=== PATIENT | female | born 1990 | race Caucasian/White ===

== ENCOUNTER 2017-05-15 10:55 | Inpatient (IN) ==
[2017-05-15] MEDS ORDERED: ONDANSETRON HCL/PF 2 MG/ML VIAL IV PRN ×2 (12:49→15:09)
[2017-05-15] MEDS ORDERED: RINGER'S SOLUTION,LACTATED 1,000 ML IV ONE (12:49)
[2017-05-15] MEDS ORDERED: RINGER'S SOLUTION,LACTATED 1,000 ML IV PRN (12:49)
[2017-05-15] MEDS ORDERED: OXYTOCIN/DEXTROSE 5%-WATER 30 UNITS/500 ML BAG IV ONE ×2 (12:49→20:24)
[2017-05-15] MEDS ORDERED: NALOXONE HCL 1 MG/1 ML SYRG IV PRN (15:09)
[2017-05-15] MEDS ORDERED: BUPIVACAINE HCL/0.9 % NACL/PF 250 ML EP PRN (15:09)
[2017-05-15] MEDS ORDERED: fentaNYL CITRATE/PF 50 MCG/ML AMPUL IT SCH (15:15)
--- NOTE | 2017-05-15 16:23 | OR ---
Anesthesia Procedure Note - Anesthesia Procedure Note Narrative: Vital Signs - Last Taken Temp 37.3 C 05/15/17 15:53 Pulse 71 05/15/17 15:53 Resp 20 05/15/17 15:53 BP 129/70 05/15/17 15:53 Pulse Ox 100 05/15/17 15:53 05/15/17 16:22 ANESTHESIA PROCEDURE NOTE Date of Procedure: 05/15/2017 Time of procedure: 1550. Performed by: Kevin Mace CRNA Director Of Vocational Training: None. Preprocedure diagnosis: Active labor. Post procedure diagnosis: Same. Procedure: Insertion of labor epidural. Indications: The patient is a 26 -year-old prima para female in active labor requesting labor epidural for pain management. Findings: See below. Details of the procedure: The patient was placed in a sitting position. Back was prepped with DuraPrep. Patient was then draped in a sterile fashion. Lidocaine 1% was infiltrated to the skin and subcutaneous tissues at the level of the L3 4 interspace. The epidural space was identified using a 18-gauge Tuohy needle with [id number] technique. 20 mcg fentanyl was given intrathecally using a 27 ga. spinal needle. Epidural catheter was inserted without difficulty. Negative test dose was elicited using 5 mL of 1.5% preservative-free lidocaine plus epinephrine 1 200,000. The epidural catheter was then taped and secured in place. EBL: Minimal. Fluids: N/A. Specimen: N/A. Post procedure condition: The patient tolerated the procedure well. No complications were noted. Thank you for this consultation. Dominguez CRNA
[2017-05-15] MEDS ORDERED: LIDOCAINE HCL 50 ML VIAL ONE (20:02)
[2017-05-15] MEDS ORDERED: oxyCODONE HCL/ACETAMINOPHEN 1 TAB TABLET PO PRN ×2 (20:24)
[2017-05-15] MEDS ORDERED: HYDROCORTISONE 30 APPL TUBE TP PRN (20:24)
[2017-05-15] MEDS ORDERED: GLYCERIN/WITCH HAZEL LEAF 40 APPL BOX TP PRN (20:24)
[2017-05-15] MEDS ORDERED: SENNOSIDES 8.6 MG TABLET PO PRN (20:24)
[2017-05-15] MEDS ORDERED: BISACODYL 10 MG SUPP.RECT RC PRN (20:24)
--- NOTE | 2017-05-15 20:27 | OR ---
Operative Report - Dictated Report Narrative: Spontaneous vaginal delivery of viable female at 1952 and 05/15/2017 with Apgars 9 and 9, weighing 3511 g in DARWIN position with tight nuchal cord 1. Cord clamping delayed approximately 1 minute Placenta delivered complete, intact, with three vessel cord Estimated blood loss: 100 mL Anesthesia: Epidural and local anesthetic Lacerations: Bilateral periurethral first-degree lacerations repaired with 4-0 Vicryl Rapide History for MU Definition: * The number of deliveries resulting in a live the patient experienced prior to current hospitalization * The previous delivery of live twins or any live multiple gestation is considered one live event. *If primagravida or nulliparous is documented select zero for the number of previous live births. Live Events: 0
[2017-05-15] MEDS: ACETAMINOPHEN 500 MG TABLET PO PRN (20:57)
[2017-05-15] MEDS: DOCUSATE SODIUM 100 MG CAPSULE PO SCH (21:08)
[2017-05-15] MEDS: BENZOCAINE/MENTHOL 81 SPRAY CAN TP PRN (21:08)
[2017-05-16] MEDS: IBUPROFEN 800 MG TABLET PO PRN ×3 (02:27→20:12)
[2017-05-16] MEDS: ACETAMINOPHEN 500 MG TABLET PO PRN ×2 (08:11→16:05)
[2017-05-16] MEDS: DOCUSATE SODIUM 100 MG CAPSULE PO SCH ×2 (08:11→20:13)
--- NOTE | 2017-05-16 12:01 | PN ---
Subjective - Date and Time Seen Date: 05/16/17 Time: 12:00 Objective - Vitals Vitals: Last Vital Signs Temp 36.4 C L 05/16/17 08:00 Pulse 71 05/16/17 08:00 Resp 20 05/16/17 08:00 BP 124/59 05/16/17 08:00 Pulse Ox 98 05/16/17 08:00 Patient denies complaints. Fasting blood sugar 67, one-hour postprandial 139 Lochia wnl Abdomen - soft, nontender Uterus - firm, at umbilicus - 1 No calf tenderness Impression: day #1 - s/p spontaneous vaginal delivery. Gestational diabetes-improving. Plan: Continue routine care Cauti Physician Documentation - Urinary Catheter Management Urethral ([facility]) Date of Insertion: 05/15/17 Time of Insertion: 16:45 Date of Removal: 05/15/17 Time of Removal: 19:41
[2017-05-17] MEDS: IBUPROFEN 800 MG TABLET PO PRN ×2 (04:07→11:44)
[2017-05-17] MEDS: ACETAMINOPHEN 500 MG TABLET PO PRN ×2 (04:08→11:44)
[2017-05-17 08:11] VITALS: BP 113/58
--- NOTE | 2017-05-17 10:22 | PN ---
Subjective - Date and Time Seen Date: 05/17/17 Time: 10:21 Objective - Vitals Vitals: Last Vital Signs Temp 36.6 C 05/17/17 08:08 Pulse 83 05/17/17 08:08 Resp 18 05/17/17 08:08 BP 113/58 05/17/17 08:08 Pulse Ox 97 05/17/17 08:08 Patient denies complaints. Lochia wnl Abdomen - soft, nontender Uterus - firm, at umbilicus - 2 No calf tenderness Impression: day #2 - s/p spontaneous vaginal delivery. Gestational diabetes-resolved Plan: Routine discharge instructions Cauti Physician Documentation - Urinary Catheter Management Urethral ([facility]) Date of Insertion: 05/15/17 Time of Insertion: 16:45 Date of Removal: 05/15/17 Time of Removal: 19:41
[2017-05-17] MEDS: DOCUSATE SODIUM 100 MG CAPSULE PO SCH (10:40)
[2017-05-17] MEDS: BENZOCAINE/MENTHOL 81 SPRAY CAN TP PRN (12:56)
== END 2017-05-17 13:25 | disposition home or self-care (01) | DRG 775 ==
LOC: OB 10:55
PROVIDERS: ADMIT Obstetrics & Gynecology; ATTEND Obstetrics & Gynecology
DX: O69.1XX0 Labor and delivery complicated by cord around neck, with compression, not applicable or unspecified; Z37.0 Single live birth; Z3A.40 40 weeks gestation of pregnancy; O70.0 First degree perineal laceration during delivery; O24.420 Gestational diabetes mellitus in childbirth, diet controlled
CPT/HCPCS: 59025; 88307